=== PATIENT | female | born 1925 | race Caucasian/White ===

== ENCOUNTER 2017-06-17 20:55 | Observation (INO) | payer MEDICARE, OTHER ==
[~2017-06-17 20:55] MED LIST: CALC600T PO; DULC10SU3 RECTAL; ENSULIQ8 PO; FURO1TAB62 PO; IPRASOL INH; LEVO100T5 PO; LEXA10TA PO; LISI-587 PO; MILKSUS PO; OCUVTAB PO; PERI8.6T PO; PRIL20TA2 PO; ROPI.5 PO; TYLE325T PO; [UNRECOGNIZED DRUG - CODE] DENTAL; [UNRECOGNIZED DRUG - OTHER] PO
[2017-06-17 21:03] VITALS: BP 129/58; PULSE 47; RESP 14; TEMP 98.8; O2SAT 97
--- NOTE | 2017-06-17 21:17 | PD ---
HPI . Bradycardia Chief Complaint: Bradycardia Time Seen by Provider: 21:12 Travel History International Travel<30 days: No Contact w/Intl Traveler<30days: No History of Present Illness HPI This patient was sent to us from a local custodial for bradycardia. They have noted bradycardia since mid afternoon. Her blood pressure has been stable with the bradycardia. I do not see a beta humza or calcium channel humza on her med list. No modifying factors. Symptoms have resolved. PFSH Social History Tobacco Use: No Allergies-Medications (Allergen,Severity, Reaction): Coded Allergies: penicillin G (Verified Allergy, Unknown, 06/17/17) Reported Meds & Prescriptions Reported Meds & Active Scripts Active Oral Analgesic Maximum Strength Dental (Benzocaine Dental) 20% Gel 1 Applic DENTAL TID PRN Requip (Ropinirole HCl) 0.5 Mg Tab 1-5 Mg PO HS Tylenol (Acetaminophen) 325 Mg Tab 650 Mg PO Q6H PRN Milk of Magnesia Liq (Magnesium Hydroxide) 400 Mg/5 Ml Susp 30 Ml PO HS PRN Esther-Colace (Sennosides-Docusate Sodium) 8.6-50 Mg Tab 1 Tab PO HS Lasix (Furosemide) 20 Mg Tab 20 Mg PO DAILY Calcium/Vitamin D (Calcium Carbonate-Vitamin D) 600-400 Mg-Unit Tab 1 Tab PO BID Zestoretic (Lisinopril-Hctz) 20-25 Mg Tab 1 Tab PO DAILY Levothyroxine (Levothyroxine Sodium) 100 Mcg Tab 100 Mcg PO DAILY Lexapro (Escitalopram Oxalate) 10 Mg Tab 10 Mg PO DAILY Reported Duoneb (Ipratropium-Albuterol Neb) 0.5-2.5 Mg/3 Ml Neb 1 Nebule INH Q6HR NEB PRN Prilosec (Omeprazole Magnesium) 20 Mg Tab 1 Cap PO DAILY@0600 Ocuvite (Multiple Vitamins W/ Minerals) 1 Tab 1 Tab PO DAILY Ensure Plus (Nutritional Supplements) 1 Liq Liq 1 Can PO BID Honey Flavor (Flavoring Agent) 1 Liq Liq 1-2 PO Dulcolax Supp (Bisacodyl) 10 Mg Supp 10 Mg RECTAL DAILY PRN Review of Systems Respiratory: Positive: Shortness of Breath Musculoskeletal: Positive: Pain (chronic left arm pain) Physical Exam Narrative GENERAL: This is an elderly lady who is awake and alert and does not appear to be in distress. SKIN: warm/dry. HEAD: Normocephalic. Atraumatic. EYES: Pupils equal and round. No scleral icterus. No injection or drainage. ENT: No nasal bleeding or discharge. Mucous membranes pink and moist. NECK: Trachea midline. Full range of motion without pain.. CARDIOVASCULAR: Regular rate and rhythm. Bradycardic at about 50. Harsh systolic murmur. RESPIRATORY: No accessory muscle use. Clear to auscultation. Breath sounds equal bilaterally. GASTROINTESTINAL: Abdomen soft. Nontender. Bowel sounds present. Nondistended. MUSCULOSKELETAL: No obvious deformities. NEUROLOGICAL: Awake and alert. No obvious cranial nerve deficits. Motor grossly within normal limits. Normal speech. PSYCHIATRIC: Appropriate mood and affect; insight and judgment normal. Data Data Last Documented VS Vital Signs Date Time Temp Pulse Resp B/P (MAP) Pulse Ox O2 Delivery O2 Flow Rate FiO2 06/17/17 23:00 52 17 120/56 (77) 98 Room Air 06/17/17 21:03 98.8 Orders Orders Electrocardiogram (06/17/17 21:24) Basic Metabolic Panel (Bmp) (06/17/17 21:24) Ckmb (Isoenzyme) Profile (06/17/17 21:24) Complete Blood Count With Diff (06/17/17 21:24) Magnesium (Mg) (06/17/17 21:24) Troponin I (06/17/17 21:24) Chest, Single Ap (06/17/17 21:24) Ecg Monitoring (06/17/17 21:24) Iv Access Insert/Monitor (06/17/17 21:24) Oximetry (06/17/17 21:24) Sodium Chloride 0.9% Flush (Ns Flush) (06/17/17 21:30) Dopamine Inj Premix (Dopamine Inj Premix (06/17/17 22:00) Terbutaline Inj (Brethine Inj) (06/17/17 22:00) Admit Order (Ed Use Only) (06/18/17 00:03) Labs Laboratory Tests Test 06/17/17 21:35 White Blood Count 5.4 TH/MM3 Red Blood Count 3.19 MIL/MM3 Hemoglobin 9.1 GM/DL Hematocrit 27.0 % Mean Corpuscular Volume 84.5 FL Mean Corpuscular Hemoglobin 28.5 PG Mean Corpuscular Hemoglobin Concent 33.7 % Red Cell Distribution Width 15.6 % Platelet Count 193 TH/MM3 Mean Platelet Volume 8.8 FL Neutrophils (%) (Auto) 44.1 % Lymphocytes (%) (Auto) 41.5 % Monocytes (%) (Auto) 8.4 % Eosinophils (%) (Auto) 4.6 % Basophils (%) (Auto) 1.4 % Neutrophils # (Auto) 2.4 TH/MM3 Lymphocytes # (Auto) 2.3 TH/MM3 Monocytes # (Auto) 0.5 TH/MM3 Eosinophils # (Auto) 0.3 TH/MM3 Basophils # (Auto) 0.1 TH/MM3 CBC Comment DIFF FINAL Differential Comment Blood Urea Nitrogen 32 MG/DL Creatinine 1.27 MG/DL Random Glucose 102 MG/DL Calcium Level 8.4 MG/DL Magnesium Level 1.4 MG/DL Sodium Level 126 MEQ/L Potassium Level 4.6 MEQ/L Chloride Level 93 MEQ/L Carbon Dioxide Level 24.5 MEQ/L Anion Gap 9 MEQ/L Estimat Glomerular Filtration Rate 40 ML/MIN Total Creatine Kinase 66 U/L Troponin I 0.37 NG/ML MDM Medical Decision Making Medical Screen Exam Complete: Yes Emergency Medical Condition: Yes Medical Record Reviewed: Yes (medical history is hypertension, hypothyroidism, history of breast cancer, depression/anxiety. She has duo nebs on her med list. ) Differential Diagnosis Differential diagnosis of bradycardia includes but is not limited to medication affect, sick sinus syndrome, normal physiology Narrative Course This patient presents with bradycardia without hypotension. This patient has now developed hypotension. Blood pressure has been recyclable couple of times in the systolic pressure is about 80. Dopamine has been ordered. Her rhythm continues to be sinus with no evidence of heart block. The patient's blood pressure returned to normal before the dopamine could be hung. CBC & BMP Diagram 06/17/17 21:35 Calcium Level 8.4 L, Magnesium Level 1.4 L The patient's blood pressure has remained stable. Physician Communication Physician Communication Dr. Connor, FP resident, will admit. Diagnosis Primary Impression: Bradycardia Admitting Information Admitting Physician Requests: Observation Condition: Stable Aretha Guillermo MD Jun 17, 2017 21:17
[2017-06-17] MEDS ORDERED: SODIUM CHLORIDE 0.9% FLUSH 10 ML FLUSH IVF PRN (21:30)
[2017-06-17 21:57] VITALS: BP 78/38; PULSE 31; RESP 18; O2SAT 97
[2017-06-17] MEDS ORDERED: DOPamine INJ PREMIX 500 ML IV PRN (22:00)
[2017-06-17] MEDS ORDERED: TERBUTALINE INJ 1 MG/ML AMP SQ PRN (22:00)
--- NOTE | 2017-06-17 22:24 | RADRPT ---
EXAM DATE/TIME: 06/17/2017 21:27 [facility] COMPARISON: No previous studies available for comparison. INDICATIONS : Chest pain MEDICAL HISTORY : None. SURGICAL HISTORY : None. ENCOUNTER: Initial ACUITY: 1 day PAIN SCORE: 0/10 LOCATION: chest FINDINGS: The heart size is enlarged. The lungs are free of focal consolidation Calcifications are seen in the right hilar region in the right mediastinum. There is a suspected calcified granuloma in the right u pper lung. There are chronic changes to several right upper ribs. There some associated pleural thick ening along the right lateral chest. There are superiorly and medially displaced humeral heads bilate rally. There is old fracture of the left clavicle. There is widening of the right acromioclavicular j oint. CONCLUSION: 1. Cardiomegaly. 2. Evidence of prior granulomatous exposure. 3. Old right rib fractures with some associated pleural thickening. 4. Medially displaced humeral heads bilaterally with suspected chronic change of the clavicles. Ganesh El MD on June 17, 2017 at 22:21 Board Certified Radiologist. This report was verified electronically.
[2017-06-17 22:31] VITALS: BP 118/53; PULSE 52; RESP 17; O2SAT 99
[2017-06-17 22:41] LABS: AUTOMATED NEUTROPHIL # 2.4 TH/MM3 (1.8-7.7); BASOPHIL # 0.1 TH/MM3 (0-0.2); BASOPHIL % 1.4 % (0.0-2.0); EOSINOPHIL # 0.3 TH/MM3 (0-0.4); EOSINOPHIL % 4.6 % (0.0-4.0); HEMO FLAGS DIFF FINAL; LYMPH % 41.5 % (9.0-44.0); LYMPHOCYTE # 2.3 TH/MM3 (1.0-4.8); MEAN CELL VOLUME 84.5 FL (80.0-100.0); MEAN CORPUSCULAR HEMOGLOBIN 28.5 PG (27.0-34.0); MEAN CORPUSCULAR HGB CONC 33.7 % (32.0-36.0); MONO % 8.4 % (0.0-8.0); NEUT % 44.1 % (16.0-70.0); PLATELET COUNT 193 TH/MM3 (150-450); RED BLOOD COUNT 3.19 MIL/MM3 (4.00-5.30); RED CELL DISTRIBUTION WIDTH 15.6 % (11.6-17.2); WHITE BLOOD COUNT 5.4 TH/MM3 (4.0-11.0)
[2017-06-17 23:00] VITALS: BP 120/56; PULSE 52; RESP 17; O2SAT 98
[2017-06-17 23:07] LABS: BICARBONATE 24.5 MEQ/L (21.0-32.0); MAGNESIUM 1.4 MG/DL (1.5-2.5); POTASSIUM 4.6 MEQ/L (3.5-5.1)
[2017-06-18] MEDS ORDERED: BISACODYL 10 MG SUPP RECTAL PRN (00:30)
[2017-06-18] MEDS ORDERED: NALOXONE HCL 0.4 MG/ML AMP IV PUSH PRN (00:30)
[2017-06-18] MEDS ORDERED: LACTULOSE SYRUP 20 GM/30 ML CUP PO PRN (00:30)
[2017-06-18] MEDS ORDERED: SENNOSIDES 8.6 MG TAB PO PRN (00:30)
[2017-06-18] MEDS ORDERED: MAGNESIUM HYDROXIDE SUSP 30 ML CUP PO PRN (00:30)
[2017-06-18] MEDS ORDERED: SODIUM CHLORIDE 0.9% FLUSH 10 ML FLUSH IV FLUSH PRN (00:30)
[2017-06-18] MEDS ORDERED: ACETAMINOPHEN 325 MG TAB PO PRN (00:45)
[2017-06-18] MEDS ORDERED: RESP: ALBUTEROL 2.5 MG/IPRATROPIUM 0.5 MG NEB (PRN) INH (00:45)
--- NOTE | 2017-06-18 01:03 | HHI.HP ---
HPI Service Family Medicine Primary Care Physician No Primary Care Physician Admission Diagnosis bradycardia Diagnoses: International Travel<30 Days: No Contact w/Intl Traveler<30days: No Known Affected Area: No History of Present Illness 89-year-old female resident of a local retirement presents with her daughter because of low heart rate. Daughter and patient both agree, she has otherwise been feeling well and her normal self, with the exception of possibly increased congestion and dry nose (which they believed to be from oxygen administration). Patient denies fever, chills, nausea, vomiting, dysuria, shortness of breath, chest pain. The patient did have an episode of hypotension in the emergency room which prompted a dopamine order, however the blood pressure went back up and dopamine was never given. All other symptoms reviewed as negative. (Yung Connor MD, R3) Review of Systems Constitutional: DENIES: Fever, Weight loss Eyes: DENIES: Blurred vision, Diplopia Ears, nose, mouth, throat: DENIES: Tinnitus, Hearing loss Respiratory: DENIES: Apneas, Cough Cardiovascular: DENIES: Chest pain, Palpitations, Syncope, Dyspnea on Exertion Gastrointestinal: DENIES: Abdominal pain, Black stools Hematologic/lymphatic: DENIES: Bruising, Lymphadenopathy Neurologic: DENIES: Headache, Localized weakness Psychiatric: DENIES: Anxiety, Confusion (Yung Connor MD, R3) Past Family Social History Past Medical History Hypertension Hypothyroidism Osteoporosis Breast Cancer in remission Left arm edema from mastectomy Chronic Pain Anxiety Depression Bilateral Lower extremity edema from venous insufficiency Wheelchair bound Restless leg syndrome Past Surgical History Mastectomy Left breast Left knee replacement Right hip surgery Pain pump in place Right shoulder replacement Reported Medications Reported Meds & Active Scripts Active Oral Analgesic Maximum Strength Dental (Benzocaine Dental) 20% Gel 1 Applic DENTAL TID PRN Requip (Ropinirole HCl) 0.5 Mg Tab 1-5 Mg PO HS Tylenol (Acetaminophen) 325 Mg Tab 650 Mg PO Q6H PRN Milk of Magnesia Liq (Magnesium Hydroxide) 400 Mg/5 Ml Susp 30 Ml PO HS PRN Esther-Colace (Sennosides-Docusate Sodium) 8.6-50 Mg Tab 1 Tab PO HS Lasix (Furosemide) 20 Mg Tab 20 Mg PO DAILY Calcium/Vitamin D (Calcium Carbonate-Vitamin D) 600-400 Mg-Unit Tab 1 Tab PO BID Zestoretic (Lisinopril-Hctz) 20-25 Mg Tab 1 Tab PO DAILY Levothyroxine (Levothyroxine Sodium) 100 Mcg Tab 100 Mcg PO DAILY Lexapro (Escitalopram Oxalate) 10 Mg Tab 10 Mg PO DAILY Reported Duoneb (Ipratropium-Albuterol Neb) 0.5-2.5 Mg/3 Ml Neb 1 Nebule INH Q6HR NEB PRN Prilosec (Omeprazole Magnesium) 20 Mg Tab 1 Cap PO DAILY@0600 Ocuvite (Multiple Vitamins W/ Minerals) 1 Tab 1 Tab PO DAILY Ensure Plus (Nutritional Supplements) 1 Liq Liq 1 Can PO BID Honey Flavor (Flavoring Agent) 1 Liq Liq 1-2 PO Dulcolax Supp (Bisacodyl) 10 Mg Supp 10 Mg RECTAL DAILY PRN (Yung Connor MD, R3) Allergies: Coded Allergies: penicillin G (Verified Allergy, Unknown, 06/17/17) Active Ordered Medications Active Medications Bisacodyl (Dulcolax Supp) 10 mg DAILY PRN RECTAL; Start 06/18/17 at 00:30; Status UNV Dopamine HCl/ Dextrose 500 ml @ 7.313 mls/ hr TITRATE PRN IV; Start 06/17/17 at 22:00 Heparin Sodium (Porcine) (Heparin Inj) 5,000 units Q12H SQ; Start 06/18/17 at 00 :30; Status UNV Lactulose (Lactulose Liq) 30 ml DAILY PRN PO; Start 06/18/17 at 00:30; Status UNV Magnesium Hydroxide (Milk Of Magnesia Liq) 30 ml Q12H PRN PO; Start 06/18/17 at 00:30; Status UNV Magnesium Oxide (Mag-Ox) 800 mg BID PO; Start 06/18/17 at 00:45; Status UNV Naloxone HCl (Narcan Inj) 0.4 mg UNSCH PRN IV PUSH; Start 06/18/17 at 00:30; Status UNV Senna/Docusate Sodium (Esther-Colace) 1 tab BID PO; Start 06/18/17 at 09:00; Status UNV Sennosides (Senokot) 17.2 mg Q12H PRN PO; Start 06/18/17 at 00:30; Status UNV Sodium Chloride 1,000 ml @ 75 mls/hr [id number] IV; Start 06/18/17 at 00:30; Status UNV Sodium Chloride (NS Flush) 2 ml BID IV FLUSH; Start 06/18/17 at 09:00; Status UNV Sodium Chloride (NS Flush) 2 ml UNSCH PRN IV FLUSH; Start 06/18/17 at 00:30; Status UNV Sodium Chloride (NS Flush) 2 ml UNSCH PRN IVF; Start 06/17/17 at 21:30 Terbutaline Sulfate (Brethine Inj) 1 mg UNSCH PRN SQ; Start 06/17/17 at 22:00 Family History 2 sons and 4 daughter all healthy Social History Lives at [facility] High school graduate 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 SKIN: Cool and dry. Appropriate capillary refill. No signs of infections. CARDIOVASCULAR: Regular rate and rhythm. 2/6 DAT heard across the precordium. RESPIRATORY: No accessory muscle use. Clear to auscultation. Breath sounds equal bilaterally. Musculoskeletal: No lower extremity edema. NEUROLOGICAL: Awake and alert. Oriented to person, month but not to year. She answers questions appropriately. Normal speech. Mild action tremor noted. PSYCHIATRIC: Appropriate mood and affect; insight and judgment fairly normal. Laboratory Laboratory Tests Test 06/17/17 21:35 White Blood Count 5.4 Red Blood Count 3.19 Hemoglobin 9.1 Hematocrit 27.0 Mean Corpuscular Volume 84.5 Mean Corpuscular Hemoglobin 28.5 Mean Corpuscular Hemoglobin Concent 33.7 Red Cell Distribution Width 15.6 Platelet Count 193 Mean Platelet Volume 8.8 Neutrophils (%) (Auto) 44.1 Lymphocytes (%) (Auto) 41.5 Monocytes (%) (Auto) 8.4 Eosinophils (%) (Auto) 4.6 Basophils (%) (Auto) 1.4 Neutrophils # (Auto) 2.4 Lymphocytes # (Auto) 2.3 Monocytes # (Auto) 0.5 Eosinophils # (Auto) 0.3 Basophils # (Auto) 0.1 CBC Comment DIFF FINAL Differential Comment Blood Urea Nitrogen 32 Creatinine 1.27 Random Glucose 102 Calcium Level 8.4 Magnesium Level 1.4 Sodium Level 126 Potassium Level 4.6 Chloride Level 93 Carbon Dioxide Level 24.5 Anion Gap 9 Estimat Glomerular Filtration Rate 40 Total Creatine Kinase 66 Troponin I 0.37 (Yung Connor MD, R3) Result Diagram: 06/17/17213406/17/172134 Imaging Chest x-ray: Cardiomegaly, evidence of prior granulomatous exposure, old right rib fracture, medially displaced humeral heads bilaterally with suspected chronic change of the clavicles (Yung Connor MD, R3) Caprini VTE Risk Assessment Caprini VTE Risk Assessment: Mod/High Risk (score >= 2) Caprini Risk Assessment Model Point Value = 1 Point Value = 2 Point Value = 3 Point Value = 5 Age 41-60 Minor surgery BMI > 25 kg/m2 Swollen legs Varicose veins or History of unexplained or recurrent spontaneous Oral contraceptives or hormone replacement Sepsis (< 1 month) Serious lung disease, including pneumonia (< 1 month) Abnormal pulmonary function Acute myocardial infarction Congestive heart failure (< 1 month) History of inflammatory bowel disease Medical patient at bed rest Age 61-74 Arthroscopic surgery Major open surgery (> 45 min) Laparoscopic surgery (> 45 min) Malignancy Confined to bed (> 72 hours) Immobilizing plaster cast Central venous access Age >= 75 History of VTE Family history of VTE Factor V Leiden Prothrombin [id number] Lupus anticoagulant Anticardiolipin antibodies Elevated serum homocysteine Heparin-induced thrombocytopenia Other congenital or acquired thrombophilia Stroke (< 1 month) Elective arthroplasty Hip, pelvis, or leg fracture Acute spinal cord injury (< 1 month) Prophylaxis Regimen Total Risk Factor Score Risk Level Prophylaxis Regimen 0-1 Low Early ambulation 2 Moderate Order ONE of the following: *Sequential Compression Device (SCD) *Heparin 5000 units SQ BID 3-4 Higher Order ONE of the following medications: *Heparin 5000 units SQ TID *Enoxaparin/Lovenox 40 mg SQ daily (WT < 150 kg, CrCl > 30 mL/min) *Enoxaparin/Lovenox 30 mg SQ daily (WT < 150 kg, CrCl > 10-29 mL/min) *Enoxaparin/Lovenox 30 mg SQ BID (WT < 150 kg, CrCl > 30 mL/min) AND/OR *Sequential Compression Device (SCD) 5 or more Highest Order ONE of the following medications: *Heparin 5000 units SQ TID (Preferred with Epidurals) *Enoxaparin/Lovenox 40 mg SQ daily (WT < 150 kg, CrCl > 30 mL/min) *Enoxaparin/Lovenox 30 mg SQ daily (WT < 150 kg, CrCl > 10-29 mL/min) *Enoxaparin/Lovenox 30 mg SQ BID (WT < 150 kg, CrCl > 30 mL/min) AND *Sequential Compression Device (SCD) (Yung Connor MD, R3) Assessment and Plan Assessment and Plan 89-year-old female with the above-mentioned past medical history presents with asymptomatic bradycardia. Found to have hyponatremia, possible ALEYDA, hypomagnesemia. Patient to be placed in observation with telemetry Code Status Alternative code: Patient has a DNR order in her record, however she states she wants to be a full code at this visit (and her daughter agrees); however, her other daughter (who is not here) is power of criminal defense attorney. Discussed Condition With Dr. Burton (Yung Connor MD, R3) Attending Attestation Patient seen and examined. Case reviewed and discussed with the resident team. Agree with plan of care as discussed with me and documented in the resident note. On looking over her meds at [facility], she is not on any meds that would slow her heart rate. Her rate was 40s initially in H pod but overnight have been dipping into the 40s. She is quite elderly at age 89 but does report over the past few months being less and less active and "being able to do very little ". She denies syncope but does feel lightheaded and weak which may be related to the bradycardia. When questioned about a possible pacemaker, she is agreeable to discuss this with cardiology. will be sure she has her thyroid checked recently as well. (Trinh Goodman MD) Problem List: (1) Bradycardia ICD Codes: R00.1 - Bradycardia, unspecified Status: Acute Plan: Normalized during my exam. Place in observation Telemetry Initial troponin 0.37; trend troponins and EKG at 0400 and 1000 Initial EKG: Sinus bradycardia, moderate intraventricular conduction delay Consider cardiology consult (2) ALEYDA (acute kidney injury) ICD Codes: N17.9 - Acute kidney failure, unspecified Status: Acute Plan: Previous creatinine on 09/2016 is 0.8 Today creatinine 1.27 We'll provide light fluid hydration at 75 mL per hour (careful with IV fluids) Hold Lasix for now (patient does not appear to be fluid overloaded on physical exam-lungs are clear, no lower extremity edema) Repeat BMP (3) Hyponatremia ICD Codes: E87.1 - Hypo-osmolality and hyponatremia Status: Acute Plan: Unclear etiology Hold Lasix for now We'll provide light fluid hydration at 75 ML per hour Monitor BMP (4) Chronic Medical Problems Status: Chronic Plan: Hypertension- currently hypotensive, holding blood pressure medication ( consider restarting for hypertension) Hypothyroidism- continue Synthroid Chronic Pain- patient does have a implantable pain pump Depression- continue Lexapro 10 mg daily Bilateral Lower extremity edema from venous insufficiency-Will hold Lasix for now given acute kidney injury and hyponatremia Wheelchair bound Restless leg syndrome- holding ropinirole (5) FEN/PPX Status: Acute Plan: Fluids: Light fluid hydration as above Electrolytes: Monitor and replace as needed Nutrition: Regular diet Prophylaxis: Heparin 5000 units twice a day and SCDs (Yung Connor MD, R3) Yung Connor MD, R3 Jun 18, 2017 01:03 Trinh Goodman MD Jun 18, 2017 11:11
[2017-06-18] MEDS: HEPARIN SODIUM - SQ 10,000 UNITS/ML VIAL SQ SCH ×2 (02:06→19:32)
[2017-06-18] MEDS: SODIUM CHLOR 0.9% 1000 ML INJ 1,000 ML IV SCH ×2 (02:06→13:50)
[2017-06-18] MEDS: MAGNESIUM OXIDE 400 MG TAB PO SCH ×3 (02:06→20:40)
[2017-06-18 03:10] VITALS: BP 125/56; PULSE 53; RESP 18; TEMP 98.1; O2SAT 95
[2017-06-18 05:16] LABS: BICARBONATE 25.8 MEQ/L (21.0-32.0); POTASSIUM 4.4 MEQ/L (3.5-5.1)
[2017-06-18] MEDS: LEVOTHYROXINE SODIUM 100 MCG TAB PO SCH (05:43)
[2017-06-18 07:05] VITALS: BP 124/58; PULSE 74; RESP 16; TEMP 97.5; O2SAT 94
[2017-06-18] MEDS: NUTRITIONAL SUPPLEMENTS PO SCH ×2 (09:00→20:40)
[2017-06-18] MEDS ORDERED: FUROSEMIDE 20 MG TAB PO SCH (09:00)
[2017-06-18] MEDS: DOCUSATE SODIUM 50 MG/SENNA 8.6 MG TAB PO SCH ×2 (09:46→20:40)
[2017-06-18] MEDS: ESCITALOPRAM OXALATE 10 MG TAB PO SCH (09:46)
[2017-06-18] MEDS: SODIUM CHLORIDE 0.9% FLUSH 10 ML FLUSH IV FLUSH SCH ×2 (09:47→20:40)
[2017-06-18] MEDS: CALCIUM/VITAMIN D 250 MG/125 U TAB PO SCH ×2 (09:47→20:40)
[2017-06-18 11:00] VITALS: BP 174/74; PULSE 73; RESP 18; TEMP 97.7; O2SAT 96
[2017-06-18 11:19] LABS: MAGNESIUM 1.5 MG/DL (1.5-2.5)
[2017-06-18 15:52] VITALS: BP 150/65; PULSE 59; RESP 19; TEMP 98.4; O2SAT 96
--- NOTE | 2017-06-18 16:34 | EKG ---
Date Performed: 06/17/2017 Time Performed: 21:16:56 PTAGE: 89 years EKG: SINUS BRADYCARDIA WITH MARKED SINUS ARRHYTHMIA BORDERLINE LEFT AXIS DEVIATION MODERATE INTR AVENTRICULAR CONDUCTION DELAY BORDERLINE ECG NO PREVIOUS TRACING DOCTOR: Deloris Croft Interpretating Date/Time 06/18/2017 16:33:10
[2017-06-18 21:32] VITALS: BP 162/70; PULSE 73; RESP 17; TEMP 98; O2SAT 95
[2017-06-18 23:20] VITALS: BP 155/68; PULSE 72; RESP 16; TEMP 98; O2SAT 95
--- NOTE | 2017-06-19 00:12 | MB ---
cc: RUDDY BARAKAT DO DATE OF CONSULTATION June 18, 2017 REASON FOR CONSULTATION Bradycardia. HISTORY OF PRESENT ILLNESS Laura Marinelli is a pleasant 89-year-old female who presented to [facility] Emergency Room on June 18, 2017 after having a low heart rate. The patient lives in [facility] [place] and was found to have a low heart rate in the 30s. During this she was also noted to have hypotension. She was sent to the emergency room and while in the emergency room she had another episode with heart rates in the 30s. This appears to be bradycardia and has significant AV blocks were noted. It is difficult to tell if the patient is symptomatic from these as during these episodes she was somewhat confused but she was noted to be hypotensive during them. In seeing her she is currently hemodynamically stable, alert, awake and oriented x3. PAST MEDICAL HISTORY 1. Hypertension. 2. Hypothyroidism. 3. Osteoporosis. 4. Breast cancer, in remission. 5. Left arm edema from this mastectomy. 6. Chronic pain. 7. Anxiety. 8. Depression. 9. Wheelchair bound due to significant hip and knee problems. 10. Restless leg syndrome. PAST SURGICAL HISTORY 1. Mastectomy Left breast 2. Left knee replacement 3. Right hip surgery 4. Pain pump in place 5. Right shoulder replacement MEDICATIONS 1. DuoNeb every 6 hours as needed for shortness of breath. 2. Zestoretic 20/25 daily. 3. Lexapro 10 milligrams daily. 4. Requip every night. 5. Lasix 20 milligrams daily. 6. Prilosec 20 milligrams daily. 7. Synthroid 100 micrograms daily. FAMILY HISTORY Denies premature coronary artery disease or sudden cardiac within the family. SOCIAL HISTORY The patient has two sons and four daughters who are all healthy. She lives at [facility]. She denies tobacco, alcohol or illicit drug abuse. REVIEW OF SYSTEMS 14-systems were reviewed including osteopathic pertinent positives and negatives above, otherwise negative. PHYSICAL EXAMINATION VITAL SIGNS: Temperature 97.7, heart rate 73, blood pressure 150/65, respirations 18, pulse ox 96% on room air. GENERAL: In general, the patient appears well in no acute distress. Alert, awake and oriented x3. HEENT; Extraocular muscles intact. Mucous membranes moist. NECK: Supple. No JVD at 45 degrees. No carotid bruits heard bilaterally. Carotid upstroke is brisk in nature. HEART: Heart is regular rate and rhythm. Positive first and second heart sounds with a 1/6 crescendo-decrescendo murmur to the right sternal border. LUNGS: Clear to auscultation bilaterally. No wheezes, rales or rhonchi. ABDOMEN: Soft, nontender, nondistended. No organomegaly noted. EXTREMITIES: Extremities show bilateral edema with no clubbing or cyanosis. Femoral and distal pulses intact bilaterally. NEUROLOGICALLY: No focal deficits. SKIN: Warm, dry and intact. OSTEOPATHIC: No kyphoscoliosis, lordosis or paraspinal tender points. LABORATORY FINDINGS Hemoglobin 9.1, hematocrit 27.0, platelets 193. Potassium 4.0, BUN 30, creatinine 1.05, troponin 0.51. CARDIOLOGY STUDIES Electrocardiogram (June 18, 2017 at 10:07) sinus rhythm with sinus arrhythmia, first degree AV block, moderate interventricular conduction delay, nonspecific ST-T wave changes. IMPRESSION 1. Significant bradycardia for which the patient appears to be somewhat symptomatic as she does get hypotensive during these. 2. Elevated troponin. This possibly could be due to underlying coronary artery disease versus significant strain on the heart with bradycardia and hypotension. 3. Acute kidney injury. 4. Hyponatremia. 5. History of hypertension. 6. History of hypothyroidism. 7. Chronic pain. 8. Wheelchair-bound. RECOMMENDATIONS 1. Laura Marinelli appears to have had significant bradycardia causing hypotension. This may have also caused her elevation of troponins. 2. I had an extensive conversation with her and her son and [id number] about this including workup with the possibility of cardiac catheterization and then consideration of a pacemaker versus avoiding the cardiac catheterization and placing the pacemaker. Overall, I think that the elevation of the troponins is most likely due to the significant bradycardia and hypotension and I feel that in an 89-year-old female we could avoid the cardiac catheterization and possibly place the pacemaker to just help during her episodes of significant bradycardia. 3. In discussing this with her she felt that she did not want to pursue any further work up or procedures. 4. After this, we discussed her code status as it appears she changed it to full code upon admission. She states that she does not remember changing it to full code and felt that she would like to continue as a DNR status. I made sure that she understood what this meant including no intubation or CPR and she agrees to this. 5. Ms. Marinelli is capable of making her own decisions but she does have a power of pharmacy retail support specialist who is her daughter, Emilee Richardson, who I had her brother call on the phone and we discussed these issues over the phone with her daughter (Emilee Richardson), who is the power of pharmacy retail support specialist, her son, her [id number] and the patient. Emilee tells me that Laura has had a DNR status for a number of years and would not want to be resuscitated and that Laura has told her multiple times in the past that she wanted no further procedures. I made sure they understood that this is a minimally invasive procedure and can be done under local but she decided that she would not want any further procedures. 6. She will be made DNR status. 7. Avoid all AV murali blocking agents. 8. I think it is reasonable to check a TSH level and if significantly hypothyroid increasing her thyroid medication as this may also be part of her bradycardia. 9. This was discussed with the primary team. 10. Greater than 45 minutes of critical care time were spent with the patient and family in discussing these issues. Thank you for allowing me to see Laura Marinelli. If there are any questions please do not hesitate to call. Ruddy Barakat DO VGP/EO /11:17 PM /11:42 PM LACEY
[2017-06-19] MEDS: HEPARIN SODIUM - SQ 10,000 UNITS/ML VIAL SQ SCH (02:00)
[2017-06-19] MEDS: SODIUM CHLOR 0.9% 1000 ML INJ 1,000 ML IV SCH (03:10)
[2017-06-19 04:15] VITALS: BP 186/79; PULSE 77; RESP 16; TEMP 98.6; O2SAT 100
[2017-06-19] MEDS: LEVOTHYROXINE SODIUM 100 MCG TAB PO SCH (05:26)
[2017-06-19 08:14] VITALS: BP 194/84; PULSE 80; RESP 20; TEMP 97.9; O2SAT 96
[2017-06-19] MEDS: NUTRITIONAL SUPPLEMENTS PO SCH (09:00)
--- NOTE | 2017-06-19 09:16 | HHI.FPPN ---
Subjective Remarks Ms Marinelli wants to go back to [facility] today. She has no complaints and has a negative ROS. Per discussion with Cardiology and her daughter who has POA there will be no procedures done. Her heart rate improved overnight. She feels good this am and is ready to go. Objective Vitals Vital Signs Date Time Temp Pulse Resp B/P (MAP) Pulse Ox O2 Delivery O2 Flow Rate FiO2 06/19/17 08:14 97.9 80 20 194/84 (120) 96 06/19/17 04:15 98.6 77 16 186/79 (114) 100 06/18/17 23:20 98.0 72 16 155/68 (97) 95 06/18/17 21:32 98.0 73 17 162/70 (100) 95 06/18/17 15:52 98.4 59 19 150/65 (93) 96 06/18/17 11:00 97.7 73 18 174/74 (107) 96 I/O 06/18/17 06/18/17 06/18/17 06/19/17 06/19/17 06/19/17 07:00 15:00 23:00 07:00 15:00 23:00 Intake Total 600 ml Balance 600 ml Intake Oral 450 ml IV Total 150 ml # Voids 6 # Bowel Movements 0 Result Diagram: 06/17/17 2135 06/18/17 0426 Objective Remarks GENERAL: Elderly female lying comfortably in bed propped up on 2 pillows. smiling in no distress SKIN: Cool and dry. Appropriate capillary refill. No signs of infections. CARDIOVASCULAR: Regular rate and rhythm. 2/6 DAT heard across the precordium. RESPIRATORY: No accessory muscle use. Clear to auscultation. Breath sounds equal bilaterally. Musculoskeletal: No lower extremity edema. NEUROLOGICAL: Awake and alert. Oriented to person, month but not to year. She answers questions appropriately. Normal speech. Mild action tremor noted. PSYCHIATRIC: Appropriate mood and affect; insight and judgment fairly normal. Urinary Catheter: No Vascular Central Line Catheter: No A/P Assessment and Plan 89-year-old female with the above-mentioned past medical history presents with asymptomatic bradycardia. Found to have hyponatremia, possible ALEYDA, hypomagnesemia. Patient was placed in observation with telemetry Discharge Planning No procedures are to be done per her daughter and per prior expressed wish of the pt. She has some memory issues currently but evidently had been very clear in the past that she wanted no invasive procedures. Therefore, she will not receive a pacemaker and will go back to [facility] today. If she develops more problems related to her significant bradycardia, hospice could help. Problem List: (1) Bradycardia ICD Codes: R00.1 - Bradycardia, unspecified Status: Acute Plan: over night on her first night she was down into the 30s but then her heart rate normalized, she may be having episodes of intermittent bradycardia Placed in observation Telemetry Initial troponin 0.37; trend troponins and EKG at 0400 and 1000 Initial EKG: Sinus bradycardia, moderate intraventricular conduction delay Cardiology consult, she refuses any pacemaker or procedure for now (2) ALEYDA (acute kidney injury) ICD Codes: N17.9 - Acute kidney failure, unspecified Status: Acute Plan: Previous creatinine on 09/2016 is 0.8 Today creatinine 1.27 We'll provide light fluid hydration at 75 mL per hour (careful with IV fluids) Hold Lasix for now (patient does not appear to be fluid overloaded on physical exam-lungs are clear, no lower extremity edema) Repeated BMP, improved her kidneys may suffer hypoperfusion when her heart rate is in the 30s and she has the resultant hypotension (3) Hyponatremia ICD Codes: E87.1 - Hypo-osmolality and hyponatremia Status: Acute Plan: may be related to HCTZ, can be followed as an outpt to see if this med needs to be adjusted Hold Lasix for now We'll provide light fluid hydration at 75 ML per hour Monitor BMP (4) Chronic Medical Problems Status: Chronic Plan: Hypertension- was hypotensive when bradycardic, holding blood pressure medication (consider restarting for hypertension she was on an yolis/diuretic combination which can contribute to hyponatremia) Hypothyroidism- continue Synthroid Chronic Pain- patient does have a implantable pain pump Depression- continue Lexapro 10 mg daily Bilateral Lower extremity edema from venous insufficiency-Will hold Lasix for now given acute kidney injury and hyponatremia Wheelchair bound Restless leg syndrome- holding ropinirole (5) FEN/PPX Status: Acute Plan: Fluids: Light fluid hydration as above Electrolytes: Monitor and replace as needed Nutrition: Regular diet Prophylaxis: Heparin 5000 units twice a day and Trinh Pedroza MD Jun 19, 2017 09:16
[2017-06-19] MEDS: SODIUM CHLORIDE 0.9% FLUSH 10 ML FLUSH IV FLUSH SCH (09:47)
[2017-06-19] MEDS: CALCIUM/VITAMIN D 250 MG/125 U TAB PO SCH (09:47)
[2017-06-19] MEDS: DOCUSATE SODIUM 50 MG/SENNA 8.6 MG TAB PO SCH (09:48)
[2017-06-19] MEDS: ESCITALOPRAM OXALATE 10 MG TAB PO SCH (09:48)
[2017-06-19] MEDS: MAGNESIUM OXIDE 400 MG TAB PO SCH (09:48)
--- NOTE | 2017-06-19 09:50 | PD.CARD.PN ---
Subjective Subjective Remarks No events overnight, no bradycardia noted Feels well, no complaints Objective Medications Current Medications Medications (Trade) Dose Ordered Sig/Ligia Route Start Time Stop Time Status Last Admin Sodium Chloride 1,000 ml @ 75 mls/hr [id number] IV 06/18/17 00:30 06/19/17 03:10 (NS Flush) 2 ml UNSCH PRN IV FLUSH 06/18/17 00:30 (NS Flush) 2 ml BID IV FLUSH 06/18/17 09:00 06/18/17 09:47 (Heparin Inj) 5,000 units Q12H SQ 06/18/17 02:00 06/19/17 02:00 (Narcan Inj) 0.4 mg UNSCH PRN IV PUSH 06/18/17 00:30 (Esther-Colace) 1 tab BID PO 06/18/17 09:00 06/18/17 20:40 (Milk Of Magnesia Liq) 30 ml Q12H PRN PO 06/18/17 00:30 (Senokot) 17.2 mg Q12H PRN PO 06/18/17 00:30 (Dulcolax Supp) 10 mg DAILY PRN RECTAL 06/18/17 00:30 (Lactulose Liq) 30 ml DAILY PRN PO 06/18/17 00:30 (Mag-Ox) 800 mg BID PO 06/18/17 00:45 06/18/17 20:40 (Tylenol) 650 mg Q6H PRN PO 06/18/17 00:45 (Oscal-D 250-125) 250 mg BID PO 06/18/17 09:00 06/18/17 20:40 (Lexapro) 10 mg DAILY PO 06/18/17 09:00 06/18/17 09:46 (Duoneb Neb) 1 ampule Q6HR NEB PRN INH 06/18/17 00:45 06/18/17 09:58 (Synthroid) 100 mcg DAILY@0600 PO 06/18/17 06:00 06/19/17 05:26 Non-Formulary Medication 1 can BID PO 06/18/17 09:00 Vital Signs / I&O Vital Signs Date Time Temp Pulse Resp B/P (MAP) Pulse Ox O2 Delivery O2 Flow Rate FiO2 06/19/17 08:14 97.9 80 20 194/84 (120) 96 10/4/17 04:15 98.6 77 16 186/79 (114) 100 06/18/17 23:20 98.0 72 16 155/68 (97) 95 06/18/17 21:32 98.0 73 17 162/70 (100) 95 06/18/17 15:52 98.4 59 19 150/65 (93) 96 06/18/17 11:00 97.7 73 18 174/74 (107) 96 I/O 06/18/17 06/18/17 06/18/17 06/19/17 06/19/17 06/19/17 07:00 15:00 23:00 07:00 15:00 23:00 Intake Total 600 ml Balance 600 ml Intake Oral 450 ml IV Total 150 ml # Voids 6 # Bowel Movements 0 Physical Exam GENERAL: NAD, AAOx3 SKIN: Warm and dry. HEAD: Atraumatic. Normocephalic. EYES: Pupils equal and round. No scleral icterus. No injection or drainage. ENT: No nasal bleeding or discharge. Mucous membranes pink and moist. NECK: Trachea midline. No JVD. CARDIOVASCULAR: Regular rate and rhythm. RESPIRATORY: No accessory muscle use. Clear to auscultation. Breath sounds equal bilaterally. GASTROINTESTINAL: Abdomen soft, non-tender, nondistended. Hepatic and splenic margins not palpable. MUSCULOSKELETAL: Left arm and lower extremity edema noted NEUROLOGICAL: Awake and alert. No obvious cranial nerve deficits. Normal speech. PSYCHIATRIC: Appropriate mood and affect; insight and judgment normal. Laboratory Laboratory Tests Test 06/19/17 08:52 06/19/17 09:12 Assessment and Plan Problem List: (1) Bradycardia ICD Codes: R00.1 - Bradycardia, unspecified Status: Acute (2) Hyponatremia ICD Codes: E87.1 - Hypo-osmolality and hyponatremia Status: Acute (3) ALEYDA (acute kidney injury) ICD Codes: N17.9 - Acute kidney failure, unspecified Status: Acute (4) Chronic Medical Problems Status: Chronic (5) Hypertension, essential, benign ICD Codes: I10 - Essential (primary) hypertension Status: Acute Assessment and Plan 1) No further bradycardic episodes Does not want PPM, discussed again today continues to not want any further procedures 2) HTN Avoid AV murali blockers Will add Norvasc 5mg daily, can be titrated up 3) No further cardiovascular work up, patient can go back to [facility] DNR status Does not want any further procedures 4) Discussed with primary team, agree with plan Ruddy Leach DO Jun 19, 2017 09:50
--- NOTE | 2017-06-19 10:01 | HHI.DCPOC ---
Discharge Care Plan Diagnosis: (1) Bradycardia Goals to Promote Your Health * To prevent worsening of your condition and complications * To maintain your health at the optimal level Directions to Meet Your Goals Take your medications as prescribed Follow your dietary instruction Follow activity as directed Keep your appointments as scheduled Take your immunizations and boosters as scheduled If your symptoms worsen call your PCP, if no PCP go to Urgent Care Center or Emergency Room Smoking is Dangerous to Your Health. Avoid second hand smoke Call the 24-hour hour crisis hotline for domestic abuse at Walter Duarte MD, R3 Jun 19, 2017 10:01
[2017-06-19 10:17] LABS: BICARBONATE 27.2 MEQ/L (21.0-32.0)
[2017-06-19 10:18] LABS: POTASSIUM 4.9 MEQ/L (3.5-5.1)
[2017-06-19 11:35] VITALS: BP 169/79; PULSE 74; RESP 18; TEMP 98.1; O2SAT 95
--- NOTE | 2017-06-19 14:41 | EKG ---
Date Performed: 06/18/2017 Time Performed: 10:07:06 PTAGE: 89 years EKG: Sinus rhythm WITH PREMATURE ATRIAL COMPLEX ABNORMAL ECG PREVIOUS TRACING : 06/17/2017 21.16 DOCTOR: Arjun Solis Interpretating Date/Time 06/19/2017 14:41:21
== END 2017-06-19 12:57 | disposition home or self-care (01) ==
LOC: NEPE 20:55 → NEDA 06-18 00:05 → NEPHCDU 06-18 01:33
PROVIDERS: ADMIT Family Medicine; ATTEND Family Medicine
DX: R00.1 Bradycardia, unspecified (principal); N17.9 Acute kidney failure, unspecified; E87.1 Hypo-osmolality and hyponatremia; R01.1 Cardiac murmur, unspecified; I49.8 Other specified cardiac arrhythmias; I44.0 Atrioventricular block, first degree; R74.8 Abnormal levels of other serum enzymes; R53.1 Weakness; R42 Dizziness and giddiness; R60.0 Localized edema; I95.9 Hypotension, unspecified; I51.7 Cardiomegaly; I11.9 Hypertensive heart disease without heart failure; E03.9 Hypothyroidism, unspecified; I45.9 Conduction disorder, unspecified; G89.29 Other chronic pain; I87.2 Venous insufficiency (chronic) (peripheral); G25.81 Restless legs syndrome; M81.0 Age-related osteoporosis without current pathological fracture; F32.9 Major depressive disorder, single episode, unspecified; F41.9 Anxiety disorder, unspecified; Z66 Do not resuscitate; Z79.899 Other long term (current) drug therapy; Z85.3 Personal history of malignant neoplasm of breast; Z96.652 Presence of left artificial knee joint; Z96.611 Presence of right artificial shoulder joint; Z99.3 Dependence on wheelchair
CPT/HCPCS: 71010; 76937; 80048; 82550; 83735; 84443; 84484; 85025; 93005; 94664; 96360; 96372; 99285; G0378; J1644; J7030